=== PATIENT | male | born 1980 | race Caucasian/White ===

== ENCOUNTER 2018-06-09 23:58 | Emergency (ER) | payer BC ==
[~2018-06-09] VITALS: Ht 185.4 cm; Wt 115.7 kg
[~2018-06-09 23:58] MED LIST: IBUP800 PO; OXYACE5T PO; RXOXYACE PO
[2018-06-10] MEDS ORDERED: ACID REDUCER 1150 MG PO (00:12)
[2018-06-10] MEDS ORDERED: METCAR500 PO (02:29)
[2018-06-10] MEDS ORDERED: Percocet 5-3251 EACH PO (02:29)
== END 2018-06-10 02:45 | disposition home or self-care (01) ==
LOC: ER 23:58
DX: M54.6 Pain in thoracic spine (principal); Z79.899 Other long term (current) drug therapy
CPT/HCPCS: 96374; 96375; 96376; 99284-25; J1170; J1885; J2060; J2405

== ENCOUNTER → 2018-07-16 | Outpatient (CLI) | payer BC ==
[~2018-07-16] MED LIST changes: +ACID REDUCER 1150 MG PO; +METCAR500 PO; +Percocet 5-3251 EACH PO
== END | disposition home or self-care (01) ==
LOC: PLD 11:26 → LAB SHORT 11:26
DX: D48.5 Neoplasm of uncertain behavior of skin (principal)
CPT/HCPCS: 88305

== ENCOUNTER 2018-09-02 21:42 | Emergency (ER) | payer BC ==
[~2018-09-02] VITALS: Ht 185.4 cm; Wt 113.4 kg
== END 2018-09-03 01:03 | disposition home or self-care (01) ==
LOC: ER 21:42
DX: S61.211A Laceration without foreign body of left index finger without damage to nail, initial encounter (principal); Z79.899 Other long term (current) drug therapy; W26.0XXA Contact with knife, initial encounter
CPT/HCPCS: 12002; 99282-25

== ENCOUNTER → 2019-08-18 | Outpatient (CLI) | payer BC | END | disposition home or self-care (01) | LOC: LAB 14:45 → LAB SHORT 14:45 | DX: Z22.321 Carrier or suspected carrier of Methicillin susceptible Staphylococcus aureus (principal) | CPT/HCPCS: 87070 ==

== ENCOUNTER → 2021-10-20 | Outpatient (CLI) | payer BC | END | disposition home or self-care (01) | LOC: LAB SHORT 11:06 → PLD 11:06 | DX: D22.4 Melanocytic nevi of scalp and neck (principal) | CPT/HCPCS: 88305 ==